=== PATIENT | male | born 1965 | race Caucasian/White ===

== ENCOUNTER → 2020-07-31 14:39 | Outpatient (CLI) | payer BC, SELFPAY ==
--- NOTE | ~2020-07-31 | XR_ITS ---
EXAMINATION: XR abdomen/kub 1V INDICATION: Kidney stones TECHNIQUE: Supine views of the abdomen were obtained on 2 radiographs. COMPARISON: 05/10/2019; CT, 05/04/2018 FINDINGS: There is chronic elevation of the right hemidiaphragm. No dilated loops of bowel are eviden t. No urolithiasis is identified. There are phleboliths of the pelvis. Mild hip osteoarthritis is not ed. IMPRESSION: 1. No urolithiasis identified. Reviewed, dictated and finalized at location A. LING SUPERVISOR
== END ==
PROVIDERS: Visit Provider Urology
DX: N20.0 Calculus of kidney (principal)
CPT/HCPCS: 74018

== ENCOUNTER → 2021-08-31 10:59 | Outpatient (CLI) | payer BC, SELFPAY ==
--- NOTE | ~2021-08-31 | XR_ITS ---
EXAMINATION: XR abdomen/kub 1V INDICATION: Kidney stone TECHNIQUE: Supine views of the abdomen were obtained on 2 radiographs. COMPARISON: 07/31/2020 FINDINGS: No urolithiasis is identified. There are phleboliths of the left pelvis. There is chronic m ild elevation of the right hemidiaphragm. Mild hip osteoarthritis is noted. The bowel gas pattern is normal. IMPRESSION: 1. No urolithiasis identified. Reviewed, dictated and finalized at location A. A RELATIONS MANAGER
== END ==
PROVIDERS: Visit Provider Urology
DX: N20.0 Calculus of kidney (principal)
CPT/HCPCS: 74018

== ENCOUNTER → 2023-04-09 13:31 | Outpatient (CLI) | payer SELFPAY ==
--- NOTE | ~2023-04-09 | XR_ITS ---
EXAMINATION: XR abdomen/kub 1V INDICATION: Kidney stone TECHNIQUE: Supine views of the abdomen were obtained on 2 radiographs. COMPARISON: 08/31/2021 FINDINGS: No urolithiasis is identified. A moderate volume of colonic stool is present. Phleboliths a re again noted in the left pelvis. There is mild osteoarthritis of the hips. IMPRESSION: 1. No urolithiasis identified. Reviewed, dictated and finalized at location F.
== END ==
PROVIDERS: PCP Urology; Visit Provider Urology
DX: N20.0 Calculus of kidney (principal)
CPT/HCPCS: 74018